=== PATIENT | female | born 1995 | race Caucasian/White ===

== ENCOUNTER → 2024-09-24 07:47 | Outpatient (REF) | payer OTHER, SELFPAY | LOC: HWRAD 07:47 | PROVIDERS: ATTENDING PHYSICIAN Nurse Practitioner Adult Health | DX: R79.89 Other specified abnormal findings of blood chemistry (principal) | CPT/HCPCS: 76700 ==

== ENCOUNTER 2025-02-23 01:08 | Emergency (ER) | payer OTHER, SELFPAY ==
[2025-02-23 01:11] VITALS: BP 117/75
--- NOTE | 2025-02-23 02:21 | EDRN ---
Called pharmacy for triamcinolone
--- NOTE | 2025-02-23 02:31 | ED.GENMED ---
History of Present Illness
General
Chief Complaint: Musculo-Skeletal Complaint
Time Seen by Provider: 02/23/25 01:28
History of Present Illness
History of Present Illness:
29-year-old female presents the emergency department for evaluation of right shoulder pain. States she initially injured the shoulder earlier this week while moving and performing demolition in her house. She went to her chiropractor today where
she had ultrasound performed suggesting 'numerous torn tendons'. She was advised to come to the emergency department for a steroid injection if her symptoms did not improve with supportive measures. Reports mild tingling to the right hand.
Review of Systems
Review of Systems
Allergies reviewed?: Yes
All Other Systems: ROS reviewed and negative except as documented in HPI and ROS
Phy Exam
Physical Exam
Physical Exam:
GEN: Well appearing, NAD, WDWN
HEENT: Oral mucosa moist, no scleral icterus
Cardiac: Regular rate
Lung: No respiratory distress, no tachypnea
MSK: No gross deformity or injuries. Right shoulder range of motion limited by pain. Passive range of motion intact with no crepitus. Focal tenderness along the proximal bicipital groove
Skin: Good color, no pallor or jaundice, no rashes
Neuro: AO x3, moves all extremities freely
Psych: Calm, cooperative
Course
Orders/Labs/Results
Orders:
Orders
02/23/25 01:17
Shoulder, Right, Trauma [CR Shoulder, Trauma - Right] Urgent
Comment:
Reason For Exam: pulling type injury, + severe pain
02/23/25 02:22
Triamcinolone Acetonide [Kenalog-10] 10 mg INTRAARTIC NOW STA
Vital Signs
Initial and Last Documented VS:
Initial Vital Signs
Temp Pulse Resp BP Pulse Ox
98.3 F 81 18 117/75 97
02/23/25 01:11 02/23/25 01:11 02/23/25 01:11 02/23/25 01:11 02/23/25 01:11
Last Documented Vital Signs
Temp Pulse Resp BP Pulse Ox
98.3 F 81 18 117/75 97
02/23/25 01:11 02/23/25 01:11 02/23/25 01:11 02/23/25 01:11 02/23/25 01:11
MDM/Problems Addressed
MDM/Problems Addressed:
29-year-old female presents with right shoulder pain. Likely acute soft tissue strain. She was quite hopeful for a steroid injection which I obliged with an intra-articular injection of 10 mg of Kenalog injected into the subacromial space.
Educated on supportive care
*Critical Care Note
Total Time (30-74mins, 75-104mins- exclusive of procedures): Not Applicable
ED Attending Note
-
Portions of this chart may have been created with voice recognition software.� Occasional wrong word or��sound alike� substitutions may have occurred due to the inherent limitations of voice recognition software.
Discharge Plan
Departure
Patient Disposition: Home (Routine Discharge)
Date of Disposition: 02/23/25
Time of Disposition: 02:59
Patient with high blood pressure during this ER visit?: No
Discharge Problem:
Sprain of right shoulder
Prescriptions:
No Action
Lexapro
10 mg PO DAILY
Vitamin
1 tab PO DAILY
acetaminophen 325 mg Tablet
650 mg PO Q4HPRN PRN (Reason: mild pain) Qty: 0 0RF
ibuprofen 600 mg Tablet
600 mg PO Q6HPRN PRN (Reason: cramps) Qty: 0 0RF
Referrals:
Ebonie Puga CRNP [Family Provider] -
Genet Guardado I., DO [Active] -
Activity Restrictions/Additional Instructions:
Follow up with Orthopedics if symptoms do not improve with the steroid injection
Interventions
Interventions:
*Risk Screen - Suicide Last Done: 02/23/25 01:11
*General Assessment Last Done: 02/23/25 02:24
*Neglect/Abuse Screening Last Done: 02/23/25 02:24
*ED- Fall Risk Assessment Last Done: 02/23/25 02:24
*ED COVID-19 Vaccine History Last Done: 02/23/25 02:24
ED-Musculoskeletal Assessment Last Done: 02/23/25 02:24
Discharge Date and Time
Print Language: [place] CITIZ[place]
== END 2025-02-23 03:00 | disposition home or self-care (01) ==
LOC: EMR 01:08
PROVIDERS: EMERGENCY PHYSICIAN Emergency Medicine; FAMILY PHYSICIAN Nurse Practitioner Adult Health
DX: S43.401A Unspecified sprain of right shoulder joint, initial encounter (principal); X50.1XXA Overexertion from prolonged static or awkward postures, initial encounter
CPT/HCPCS: 99283; 73030